=== PATIENT | male | born 1945 | race Caucasian/White ===

== ENCOUNTER 2017-10-18 07:54 | Observation (INO) | payer MEDICARE ==
[~2017-10-18] VITALS: Ht 175.3 cm; Wt 126.1 kg
[~2017-10-18 07:54] MED LIST: FURO40TA PO; IPRASOL INH; METO100T PO; OXYGEN NAS.CANULA; WARF-22 PO; [UNRECOGNIZED DRUG - CODE] PO
[2017-10-18] MEDS ORDERED: INSULIN HUMAN REGULAR 1,000 UNITS/10 ML VIAL SQ PRN (08:30)
[2017-10-18] MEDS ORDERED: METOPROLOL TARTRATE 25 MG TAB PO PRN (08:30)
[2017-10-18] MEDS ORDERED: CHLORHEXIDINE GLUCONATE 2 % 1 PACK (2 CLOTHS) TOPICAL PRN (08:30)
[2017-10-18] MEDS ORDERED: LACTATED RINGER'S 1000 ML IV PRN (08:30)
[2017-10-18] MEDS ORDERED: CIPROFLOXACIN/DEXT 400 MG/200 ML IV SCH (08:30)
[2017-10-18] MEDS ORDERED: SODIUM CHLORID 0.9% 500 ML IV PRN (08:30)
[2017-10-18] MEDS ORDERED: POVIDONE IODINE 5% (ANTISEPSIS KIT) 4 APPLICATIONS EACH NARE PRN (08:30)
--- NOTE | 2017-10-18 08:48 | RADRPT ---
EXAM DATE/TIME: 10/18/2017 08:22 [place] COMPARISON: No previous studies available for comparison. INDICATIONS : Pre op for cysto. MEDICAL HISTORY : Carcinoma, colon. Carcinoma, squamous cell. SURGICAL HISTORY : None. ENCOUNTER: Initial ACUITY: 1 day PAIN SCORE: 0/10 LOCATION: Bilateral chest FINDINGS: A single view of the chest demonstrates bibasilar airspace disease just above the hemidiaphragms. No associated effusions. Heart size is upper limits of normal. Degenerative osteophytic changes in the l eft shoulder. Osseous structures are otherwise intact. CONCLUSION: 1. Bibasilar airspace disease. Findings are likely atelectatic although early infiltrates cannot be e xcluded. 2. Heart size is upper limits of normal and well compensated. Ryan Pacheco MD on October 18, 2017 at 8:44 Board Certified Radiologist. This report was verified electronically.
[2017-10-18 09:26] LABS: BILIRUBIN, URINE NEG (NEG); BLOOD, URINE LARGE (NEG); GLUCOSE,URINE NEG (NEG); KETONE, URINE TRACE mg/dL (NEG); MUCUS URINE FEW /lpf (OCC); NITRITE,URINE NEG (NEG); SQUAMOUS EPITHELIAL CELL URINE 4 /hpf (0-5); URINE LEUKOCYTE ESTERASE TRACE (NEG)
[2017-10-18 09:29] LABS: URINE COLOR LIGHT-RED (YELLW/STRAW)
[2017-10-18 09:31] LABS: AUTOMATED NEUTROPHIL # 4.6 TH/MM3 (1.8-7.7); BASOPHIL % 0.5 % (0.0-2.0); EOSINOPHIL # 0.2 TH/MM3 (0-0.4); EOSINOPHIL % 3.1 % (0.0-4.0); HEMATOCRIT 40.8 % (39.0-51.0); HEMOGLOBIN 13.2 GM/DL (13.0-17.0); LYMPH % 14.9 % (9.0-44.0); MEAN CELL VOLUME 94.3 FL (80.0-100.0); MEAN CORPUSCULAR HEMOGLOBIN 30.5 PG (27.0-34.0); MEAN CORPUSCULAR HGB CONC 32.4 % (32.0-36.0); MONOCYTE # 0.6 TH/MM3 (0-0.9); NEUT % 72.5 % (16.0-70.0); PLATELET COUNT 140 TH/MM3 (150-450); RED BLOOD COUNT 4.32 MIL/MM3 (4.50-5.90); RED CELL DISTRIBUTION WIDTH 15.7 % (11.6-17.2); WHITE BLOOD COUNT 6.4 TH/MM3 (4.0-11.0)
[2017-10-18 09:40] LABS: INTERNATIONAL NORMALIZED RATIO 1.1 RATIO; PROTHROMBIN TIME - PATIENT 10.8 SEC (9.8-11.6)
[2017-10-18 09:51] LABS: ALBUMIN 3.2 GM/DL (3.4-5.0); AST (GOT) 15 U/L (15-37); BICARBONATE 41.9 MEQ/L (21.0-32.0); BLOOD UREA NITROGEN 15 MG/DL (7-18); CALCIUM 8.7 MG/DL (8.5-10.1); CHLORIDE 96 MEQ/L (98-107); CREATININE 0.83 MG/DL (0.60-1.30); GLOMERULAR FILTRATION RATE 91 ML/MIN (>89); GLUCOSE,RANDOM 102 MG/DL (74-106); SODIUM (NA) 142 MEQ/L (136-145)
[2017-10-18 09:52] LABS: ALT (GPT) 19 U/L (12-78)
[2017-10-18 09:54] LABS: ALKALINE PHOSPHATASE 56 U/L (45-117); TOTAL BILIRUBIN ADULT 0.5 MG/DL (0.2-1.0); TOTAL PROTEIN 6.7 GM/DL (6.4-8.2)
[2017-10-18] MEDS ORDERED: GENTAMICIN SULFATE 80 MG/2 ML VIAL ONE (10:27)
[2017-10-18] MEDS ORDERED: ONDANSETRON HCL 4 MG/2 ML VIAL IV PUSH PRN (11:15)
[2017-10-18] MEDS ORDERED: oxyCODONE/ACETAMINOPHEN 7.5 MG/325 MG TAB PO PRN (11:15)
[2017-10-18] MEDS ORDERED: MORPHINE SULFATE 2 MG/ML SYRINGE IM PRN (11:15)
--- NOTE | 2017-10-18 11:25 | PD.OP ---
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 Decision made to bring the patient to the operating room to undergo cystoscopy transurethral resection of a bladder tumor. Risk and benefits were discussed preoperatively and the patient was willing to proceed. Patient was brought to the operating room and identified by myself as Delonte Clifton. He was placed in the dorsal lithotomy position, prepped and draped in sterile fashion, received preprocedure antibiotics and general endotracheal tube anesthesia was administered. Using the visual obturator, the 26F resectoscope was inserted into the bladder. A large median lobe was identified making it difficult to enter into the bladder. The bladder neck was high riding also. Once into the bladder, a large bladder tumor was noted above the right ureteral orifice. The tumor was larger than 5 cm. The tumor was resected using the Adams loop resectoscope. The tumor specimen was then sent to pathology. The scope was then removed. The cystoscope was then inserted using the 70 lens and vann cystoscopy did not show any other bladder tumors around the area of the bladder neck. The resectoscope was then reinserted using the visual obturator decision was made to then perform a transurethral resection of the prostate to a large median lobe and difficulty entering the bladder. This was done using the resectoscope loop until both lobes were resected on each side as well as the median lobe. Once this was done access into the bladder was much easier. The rollerball was then used to cauterize the areas of the prostate on each side that were bleeding and any areas inside the bladder. The chips were then evacuated using the iliac evacuator. The chips were then sent to pathology. A 22 [place] three-way Sparks catheter was inserted using a catheter guide with 20 cc placed into the balloon. Using a piston syringe the bladder was irrigated to clear. The patient was stable throughout the case and tolerated procedure well and was awoken and transferred recovery in stable condition. Shahzad Waters DO October 18, 2017 11:25
[2017-10-18] MEDS: SODIUM CHLOR 0.9% 1000 ML INJ 1,000 ML IV SCH ×2 (11:30→22:43)
[2017-10-18] MEDS ORDERED: MIDAZOLAM HCL 2 MG/2 ML VIAL ONE (11:38)
[2017-10-18] MEDS ORDERED: BELLADONNA ALKALOIDS/OPIUM 60 MG SUPP RECTAL PRN (12:00)
[2017-10-18] MEDS ORDERED: PHENYLEPH/NS 1000 MCG/10 ML SYR IV ONE (12:00)
[2017-10-18] MEDS ORDERED: ONDANSETRON HCL 4 MG/2 ML VIAL IV PUSH ONE (12:00)
[2017-10-18] MEDS ORDERED: LABETALOL HCL 100 MG/20 ML VIAL IV ONE (12:00)
[2017-10-18] MEDS ORDERED: PROPOFOL 200 MG/20 ML AMP IV ONE (12:00)
[2017-10-18] MEDS ORDERED: ePHEDrine/NS 25 MG/5 ML SYRINGE IV ONE (12:00)
[2017-10-18] MEDS ORDERED: GLYCOPYRROLATE 1 MG/5 ML SYRINGE IV PUSH ONE (12:00)
[2017-10-18] MEDS ORDERED: DEXAMETHASONE SOD PHOS 4 MG/ML VIAL IV ONE (12:00)
[2017-10-18] MEDS ORDERED: ROCURONIUM INJ 50 MG/5 ML SYRINGE IV PUSH ONE (12:00)
[2017-10-18] MEDS ORDERED: LIDOCAINE HCL 1% PF 5 ML SYRINGE OTHER ONE (12:00)
[2017-10-18] MEDS ORDERED: NEOSTIGMINE 5 MG/5 ML SYRINGE IV PUSH ONE (12:00)
[2017-10-18] MEDS ORDERED: *morphine SULFATE 8 MG/ML PERIprocedure ONLY ONE ×2 (12:02→12:40)
[2017-10-18 12:09] LABS: HEMATOCRIT 39.8 % (39.0-51.0); MEAN CELL VOLUME 93.2 FL (80.0-100.0); MEAN CORPUSCULAR HEMOGLOBIN 30.5 PG (27.0-34.0); MEAN CORPUSCULAR HGB CONC 32.7 % (32.0-36.0); PLATELET COUNT 120 TH/MM3 (150-450); RED BLOOD COUNT 4.27 MIL/MM3 (4.50-5.90); RED CELL DISTRIBUTION WIDTH 15.2 % (11.6-17.2); WHITE BLOOD COUNT 5.5 TH/MM3 (4.0-11.0)
[2017-10-18] MEDS ORDERED: DO NOT ADM ANY ANTICOAGULANT DRUGS PRN (12:15)
[2017-10-18 12:56] LABS: BICARBONATE 41.2 MEQ/L (21.0-32.0)
[2017-10-18 13:09] LABS: CALCIUM 8.3 MG/DL (8.5-10.1); CREATININE 0.89 MG/DL (0.60-1.30)
[2017-10-18] MEDS ORDERED: RESP: ALBUTEROL 2.5 MG/IPRATROPIUM 0.5 MG NEB (SCH) NEB (14:00)
[2017-10-18 15:46] VITALS: BP 126/80; PULSE 108; RESP 20; TEMP 98.4; O2SAT 92
[2017-10-18 20:00] VITALS: BP 121/72; PULSE 108; RESP 16; TEMP 98.8; O2SAT 94
--- NOTE | 2017-10-18 20:48 | EKG ---
Date Performed: 10/18/2017 Time Performed: 08:44:23 PTAGE: 72 years EKG: ATRIAL FIBRILLATION, with controlled ventricular rate. POSSIBLE INFERIOR MYOCARDIAL INFARCT ION , PROBABLY OLD ABNORMAL RHYTHM ECG NO PREVIOUS TRACING DOCTOR: Saad Ybarra Interpretating Date/Time 10/18/2017 20:47:03
[2017-10-18] MEDS: CIPROFLOXACIN 400 MG PREMIX 200 ML IV SCH (22:24)
[2017-10-18] MEDS: METOPROLOL TARTRATE 100 MG TAB PO SCH (22:24)
[2017-10-18] MEDS ORDERED: MORPHINE SULFATE 4 MG/ML INJ ONE (22:36)
[2017-10-19] VITALS: BP 108/65; PULSE 85; RESP 17; TEMP 98.6; O2SAT 94
[2017-10-19 04:00] VITALS: BP 137/82; PULSE 93; RESP 18; TEMP 98; O2SAT 94
[2017-10-19] MEDS ORDERED: LEVOTHYROXINE SODIUM 125 MCG TAB PO SCH (06:00)
[2017-10-19 07:39] VITALS: O2SAT 93
[2017-10-19 08:00] VITALS: BP 154/100; PULSE 104; RESP 16; TEMP 97.3; O2SAT 91
--- NOTE | 2017-10-19 08:25 | HHI.PR ---
Subjective Patient symptoms today Pt seen and examined. Feels well. Objective Vital Signs Vital Signs Date Time Temp Pulse Resp B/P (MAP) Pulse Ox O2 Delivery O2 Flow Rate FiO2 10/19/17 04:00 98.0 93 18 137/82 (100) 94 10/19/17 00:00 98.6 85 17 108/65 (79) 94 10/18/17 20:00 98.8 108 16 121/72 (88) 94 10/18/17 15:46 98.4 108 20 126/80 (95) 92 10/18/17 14:00 98.4 99 19 132/74 (93) 93 Nasal Cannula 3 10/18/17 13:30 96 18 137/85 (102) 94 Nasal Cannula 3 10/18/17 13:00 101 20 132/85 (101) 94 Nasal Cannula 3 10/18/17 12:30 98 12 155/84 (107) 97 Nasal Cannula 3 10/18/17 12:15 93 12 157/82 (107) 95 Nasal Cannula 4 10/18/17 12:00 98 20 153/94 (113) 94 Nasal Cannula 4 10/18/17 11:45 100 18 168/109 (128) 88 Simple Mask 6 10/18/17 11:29 97.0 103 13 137/95 (109) 88 Simple Mask 15 10/18/17 09:16 98.2 86 16 149/90 (109) 93 10/18/17 09:15 Nasal Cannula 3 Intake & Output 10/19/17 10/19/17 07:00 19:00 Intake Total 2100 ml Balance 2100 ml Intake Oral 900 ml IV Total 1200 ml Result Diagram: 10/18/17 1158 10/18/17 1158 Objective Remarks Abd:soft,nt,nd Sparks with clear urine Medications and IVs Current Medications Medications (Trade) Dose Ordered Sig/River Route Start Time Stop Time Status Last Admin (Betadine 5% Antisepsis Kit) 1 applic LUMBER MARKER PRN EACH NARE 10/18/17 08:30 10/21/17 08:29 10/18/17 09:17 (Chlorhexidine 2% Cloth) 3 pack LUMBER MARKER PRN TOPICAL 10/18/17 08:30 10/21/17 08:29 10/18/17 08:30 (NovoLIN R INJ) See Protocol Table ... LUMBER MARKER PRN SQ 10/18/17 08:30 10/21/17 08:29 Sodium Chloride 1,000 ml @ 84 mls/hr [id number] IV 10/18/17 11:15 10/18/17 22:43 Ciprofloxacin/ Dextrose 200 ml @ 200 mls/hr Q12H IV 10/18/17 22:00 10/19/17 10:59 10/18/17 22:24 (Zofran Inj) 4 mg Q6HR PRN IV PUSH 10/18/17 11:15 (Synthroid) 125 mcg DAILY@0600 PO 10/19/17 06:00 10/19/17 06:06 (Duoneb Neb) 1 ampule Q6HR WHILE AWAKE NEB NEB 10/18/17 14:00 10/19/17 07:39 (Lopressor) 100 mg Q12HR PO 10/18/17 21:00 10/18/17 22:24 (Lasix) 40 mg DAILY PO 10/19/17 09:00 (B & O Supp) 60 mg Q6HR PRN RECTAL 10/18/17 12:00 (Percocet 7.5-325 Mg) 1 tab Q6H PRN PO 10/18/17 11:15 (Morphine Inj) 1 mg Q3H PRN IM 10/18/17 11:15 10/18/17 22:39 ([facility] Nursing Information) ALL NURSING DEPARTME... UNSCH PRN .XX 10/18/17 12:15 10/19/17 12:14 Assessment and Plan Assessment and Plan Stable s/p TURBT/TURP Discharge home today F/U Sunday for void trial. Shahzad Waters DO October 19, 2017 08:25
[2017-10-19] MEDS ORDERED: FUROSEMIDE 40 MG TAB PO SCH (09:00)
[2017-10-19] MEDS: CIPROFLOXACIN 400 MG PREMIX 200 ML IV SCH (10:53)
[2017-10-19] MEDS: METOPROLOL TARTRATE 100 MG TAB PO SCH (10:53)
[2017-10-19] MEDS: SODIUM CHLOR 0.9% 1000 ML INJ 1,000 ML IV SCH (11:05)
[2017-10-19 12:00] VITALS: BP 118/69; PULSE 92; RESP 17; TEMP 97.9; O2SAT 90
== END 2017-10-19 13:17 | disposition home or self-care (01) ==
LOC: HSDC 07:54 → HSDI 11:18 → N06B 14:41
PROVIDERS: ADMIT Urology; ATTEND Urology
DX: N40.1 Benign prostatic hyperplasia with lower urinary tract symptoms (principal); R82.99 Other abnormal findings in urine; J44.9 Chronic obstructive pulmonary disease, unspecified; I10 Essential (primary) hypertension; I82.509 Chronic embolism and thrombosis of unspecified deep veins of unspecified lower extremity; R94.31 Abnormal electrocardiogram [ECG] [EKG]; Z99.81 Dependence on supplemental oxygen; Z01.818 Encounter for other preprocedural examination; Z01.810 Encounter for preprocedural cardiovascular examination
CPT/HCPCS: 00912; 52240; 71045; 80053; 81001; 85025; 85027; 85610; 85730; 87086; 88305; 88307; 93005; 94150; 94640; 96365; 96375; G0378; J0744; J1100; J1580; J2250; J2270; J2370; J2405; J2710; J3010; J7030; J7120; 80048